=== PATIENT | female | born 1950 | race Caucasian/White ===

== ENCOUNTER 2019-05-23 04:34 | Outpatient (CLI) | payer SELFPAY ==
[~2019-05-23 04:34] MED LIST: AZIT-63 PO; DEXL60CA3 PO; ROSU10TA2 PO
== END 2019-05-23 23:59 | disposition home or self-care (01) ==
LOC: HW VAS 04:34
DX: Z13.6 Encounter for screening for cardiovascular disorders (principal)

== ENCOUNTER 2020-09-24 13:06 | Emergency (ER) | payer MEDICARE, MEDICAID ==
[~2020-09-24] VITALS: Ht 160 cm; Wt 46.0 kg
[2020-09-24 14:13] LABS: BASOPHILS # (AUTO) 0.1 X10'3 (0-0.2); BASOPHILS % (AUTO) 1.1 % (0-1); EOSINOPHILS # (AUTO) 0.4 X10'3 (0-0.9); EOSINOPHILS % (AUTO) 6.4 % (0-6); HEMOGLOBIN 14.3 g/dl (12.0-16.0); LYMPHOCYTES # (AUTO) 1.4 X10'3 (1.1-4.8); LYMPHOCYTES % (AUTO) 25.2 % (21-51); MEAN CORPUSCULAR VOLUME 94.3 FL (78-98); MEAN PLATELET VOLUME 7.7 FL (7.4-10.4); MONOCYTES # (AUTO) 0.5 X10'3 (0-0.9); MONOCYTES % (AUTO) 9.4 % (2-12); NEUTROPHILS # (AUTO) 3.2 X10'3 (1.8-7.7); NEUTROPHILS % (AUTO) 57.9 % (42-75); PLATELET COUNT 228 X10'3 (140-440); RED BLOOD COUNT 4.46 X10'6 (4.20-5.60); RED CELL DISTRIBUTION WIDTH 12.8 % (11.5-14.5); WHITE BLOOD COUNT 5.5 X10'3 (4.5-11.0)
[2020-09-24 14:29] LABS: ALANINE AMINOTRANSFERASE 18 U/L (12-78); ALBUMIN 3.9 G/DL (3.4-5.0); ALBUMIN/GLOBULIN RATIO 1.1 (1.1-1.5); ALKALINE PHOSPHATASE 55 IU/L (46-116); ANION GAP 5 (8-16); ASPARTATE AMINO TRANSFERASE 22 U/L (10-37); BILIRUBIN,TOTAL 0.6 MG/DL (0.1-1.0); BLOOD UREA NITROGEN 13 MG/DL (7-18); BUN/CREATININE RATIO 13.4 (6.6-38.0); CALCIUM 8.9 MG/DL (8.5-10.1); CHLORIDE 104 MMOL/L (99-107); CREATININE 0.97 MG/DL (0.40-0.90); GLUCOSE 98 MG/DL (70-104); POTASSIUM 3.7 MMOL/L (3.5-5.1); SODIUM 137 MMOL/L (135-145); TOTAL CARBON DIOXIDE 28.1 MMOL/L (24-32); TOTAL PROTEIN 7.6 G/DL (6.4-8.2); eGFR 57 ML/MIN
[2020-09-24 15:03] VITALS: BP 152/72
== END 2020-09-24 15:07 | disposition home or self-care (01) ==
LOC: ER 13:07
DX: M54.6 Pain in thoracic spine (principal); R07.81 Pleurodynia; R10.31 Right lower quadrant pain; K59.00 Constipation, unspecified; K22.0 Achalasia of cardia; K21.9 Gastro-esophageal reflux disease without esophagitis; Z90.710 Acquired absence of both cervix and uterus; Z88.2 Allergy status to sulfonamides; Z88.6 Allergy status to analgesic agent; Z88.8 Allergy status to other drugs, medicaments and biological substances; Z88.1 Allergy status to other antibiotic agents; Z79.2 Long term (current) use of antibiotics; Z79.899 Other long term (current) drug therapy
CPT/HCPCS: 36415; 72128; 80053; 85025; 99284

== ENCOUNTER 2020-10-06 13:30 | Outpatient (CLI) | payer MEDICARE, MEDICAID ==
[~2020-10-06 13:30] MED LIST changes: +barium sulfate 450ml oral suspension ONE
== END 2020-10-06 23:59 | disposition home or self-care (01) ==
LOC: RAD 13:30
PROVIDERS: ATTEND Internal Medicine Gastroenterology
DX: K21.9 Gastro-esophageal reflux disease without esophagitis (principal); R13.14 Dysphagia, pharyngoesophageal phase
CPT/HCPCS: 74230

== ENCOUNTER 2022-01-12 12:00 | Outpatient (CLI) | payer MEDICARE, MEDICAID ==
[~2022-01-12] VITALS: Ht 165.1 cm; Wt 52.2 kg
[~2022-01-12 12:00] MED LIST changes: -AZIT-63 PO; +AZIT-83 PO; -barium sulfate 450ml oral suspension ONE
[2022-01-12 13:11] LABS: LYMPHOCYTES # (AUTO) 1.1 X10'3 (1.1-4.8); MONOCYTES # (AUTO) 0.5 X10'3 (0-0.9); PRE OP HEMOGLOBIN 13.9 g/dL (12.0-16.0); RED BLOOD COUNT 4.41 X10'6 (4.20-5.60); RED CELL DISTRIBUTION WIDTH 13.2 % (11.5-14.5)
[2022-01-12 13:12] LABS: BASOPHILS # (AUTO) 0.1 X10'3 (0-0.2); BASOPHILS % (AUTO) 1.4 % (0-1); EOSINOPHILS # (AUTO) 0.4 X10'3 (0-0.9); LYMPHOCYTES % (AUTO) 18.6 % (21-51); MEAN CORPUSCULAR HEMOGLOBIN 31.5 PG (27.0-31.0); MEAN CORPUSCULAR HGB CONC 33.8 g/dL (33.0-36.5); MEAN CORPUSCULAR VOLUME 93.4 FL (78-98); MEAN PLATELET VOLUME 7.8 FL (7.4-10.4); MONOCYTES % (AUTO) 8.4 % (2-12); NEUTROPHILS # (AUTO) 3.9 X10'3 (1.8-7.7); NEUTROPHILS % (AUTO) 65.6 % (42-75); PRE OP HEMATOCRIT 41.2 % (35.0-45.0); PRE OP PLATELET COUNT 226 X10'3 (140-440)
[2022-01-12 13:36] LABS: ALBUMIN 3.8 G/DL (3.4-5.0); ALBUMIN/GLOBULIN RATIO 1.1 (1.1-1.5); ALKALINE PHOSPHATASE 57 IU/L (46-116); BLOOD UREA NITROGEN 27 MG/DL (7-18); BUN/CREATININE RATIO 32.9 (6.6-38.0); CALCIUM 9.3 MG/DL (8.5-10.1); CHLORIDE 103 MMOL/L (99-107); CREATININE 0.82 MG/DL (0.40-0.90); PRE OP ALT 20 U/L (30-65); PRE OP ANION GAP 8 (8-16); PRE OP AST 23 U/L (10-37); PRE OP BILIRUB, TOTAL 0.3 MG/DL (0.0-1.0); PRE OP GLUCOSE 89 MG/DL (70-104); PRE OP SODIUM 139 MMOL/L (135-145); TOTAL CARBON DIOXIDE 28.2 MMOL/L (24-32); TOTAL PROTEIN 7.2 G/DL (6.4-8.2); eGFR 69 ML/MIN
[2022-01-12 13:51] LABS: CLARITY,URINE CLEAR (Clear); COLOR,URINE YELLOW (Yellow); GLUCOSE, URINE NEGATIVE (Neg); KETONES,URINE NEGATIVE (Neg); LEUKOCYTE ESTERASE ,URINE NEGATIVE (Neg); NITRITES, URINE NEGATIVE (Neg); OCCULT BLOOD,URINE TRACE-INTACT (Neg); PH,URINE 5.5 (4.8-8.0); PROTEIN,URINE NEGATIVE (Neg); UROBILINOGEN,URINE 0.2 E.U/dL (0.2-1.0)
[2022-01-12 13:58] LABS: UA COLLECTION TYPE CLN CATCH MIDSTREAM
[2022-01-12 14:35] LABS: BACTERIA,URINE FEW /HPF (Neg); MUCUS STRANDS FEW /LPF (Neg); RBC,URINE 0-2 /HPF (0-2); SQUAMOUS EPITHELIAL CELL,UR FEW /LPF (FEW); TRANSITIONAL EPI CELLS,URINE FEW /HPF; WBC,URINE 0-4 /HPF (0-4)
[2022-01-13] MEDS ORDERED: iohexol 300mg/ml 100ml inj. ONE (08:50)
[2022-01-18] MEDS ORDERED: ringers solution, lacted 1,000 ML IV SCH (05:00)
[2022-01-18] MEDS ORDERED: cefazolin/dext.iso 2gm/50ml IV ONE (05:30)
[2022-01-18] MEDS ORDERED: famotidine 20mg tablet PO ONE (05:30)
== END 2022-01-13 23:59 | disposition home or self-care (01) ==
LOC: PRE-OP 12:00 → EDSTATUS 01-18 08:30
PROVIDERS: ATTEND Surgery
DX: Z01.818 Encounter for other preprocedural examination (principal); I08.3 Combined rheumatic disorders of mitral, aortic and tricuspid valves; K40.90 Unilateral inguinal hernia, without obstruction or gangrene, not specified as recurrent; F41.9 Anxiety disorder, unspecified; Z20.822 Contact with and (suspected) exposure to COVID-19; Z90.710 Acquired absence of both cervix and uterus; Z98.890 Other specified postprocedural states; Z88.5 Allergy status to narcotic agent; Z88.2 Allergy status to sulfonamides; Z88.8 Allergy status to other drugs, medicaments and biological substances; Z79.899 Other long term (current) drug therapy
CPT/HCPCS: 36415; 74177; 80053; 81001; 85025; 93005; 93306; Q9967; U0003; U0005; J7120

== ENCOUNTER → 2024-05-15 | Outpatient (CLI) | payer MEDICARE, MEDICAID ==
[~2024-05-15] MED LIST changes: -AZIT-83 PO; -DEXL60CA3 PO; +LANS30TA4 PO; -ROSU10TA2 PO
== END | disposition home or self-care (01) ==
LOC: RAD 12:47
PROVIDERS: ATTEND Physician Assistant
DX: K44.9 Diaphragmatic hernia without obstruction or gangrene (principal); K22.0 Achalasia of cardia
CPT/HCPCS: 74220

== ENCOUNTER 2025-04-10 12:00 | Outpatient (CLI) | payer MEDICARE, MEDICAID ==
--- NOTE | 2025-04-10 14:56 | RADIOLOGY REPORT ---
Procedure: MR MRI UPPER EXTREMITY LEFT 04/10/2025 12:21 PM INDICATION: PAIN IN LEFT SHOULDER COMPARISON: None TECHNIQUE: Multiplanar, multisequence MRI of the left shoulder was performed. FINDINGS: Supraspinatus: Moderate tendinosis. A subcentimeter concealed insertional tear is seen in the anter ior insertion . Infraspinatus: Normal in morphology and signal. Subscapularis: Normal in morphology and signal. Teres minor: Normal in morphology and signal. Biceps tendon: Long head biceps tendon is normal in morphology and signal. Short head biceps tendon is intact. Subacromial bursa: Mild fluid distention. Subcoracoid bursa: Mild fluid distention. Acromioclavicular joint: Degenerative hypertrophy. Type II acromion. Glenohumeral joint: Unremarkable. Glenoid labrum: Unremarkable in this non-arthrographic study. Bones: No suspicious lesion is identified. Other: Unremarkable. IMPRESSION: 1. Mild degenerative hypertrophy of the acromioclavicular joint and subacromial spurring with evidenc e of rotator cuff impingement. 2. Moderate supraspinatus tendinosis complicated with a subcentimeter concealed insertional tear in t he anterior aspect of the tendon without tendon retraction or muscle atrophy.
== END 2025-04-10 23:59 | disposition home or self-care (01) ==
LOC: MRI02 12:00
PROVIDERS: ATTEND Family Medicine
DX: M19.012 Primary osteoarthritis, left shoulder (principal); M25.512 Pain in left shoulder; M89.312 Hypertrophy of bone, left shoulder; M75.92 Shoulder lesion, unspecified, left shoulder; M75.82 Other shoulder lesions, left shoulder
CPT/HCPCS: 73221